=== PATIENT | female | born 1970 | race Two or more races ===

== ENCOUNTER 2019-08-27 11:23 | Outpatient (CLI) | payer BC ==
--- NOTE | 2019-08-27 13:30 | Diagnostic Imaging Report ---
Indication: Cough Technique: 2 views of the chest Comparison: None Findings: Lungs and pleural spaces are clear. The heart size is normal. The bones are unremarkable. Impression: Negative
== END 2019-08-27 13:23 | disposition home or self-care (01) ==
LOC: RAD 11:23
DX: R05 Cough (principal)
CPT/HCPCS: 71046